=== PATIENT | female | born 1955 | race Caucasian/White ===

== ENCOUNTER 2024-12-20 17:13 | Emergency (ER) | payer MEDICARE ==
[~2024-12-20] VITALS: Ht 165.1 cm; Wt 72.5 kg
[2024-12-20 17:43] VITALS: BP 157/84
[2024-12-20 17:45] VITALS: BP 162/92
[2024-12-20] MEDS ORDERED: IBUPROFEN 200 MG/TAB PO ONE (17:45)
[2024-12-20 18:00] VITALS: BP 143/78
[2024-12-20 18:15] VITALS: BP 141/82
[2024-12-20 18:30] VITALS: BP 129/80
[2024-12-20 18:39] VITALS: BP 129/80
== END 2024-12-20 18:52 | disposition home or self-care (01) ==
LOC: ED 17:13
DX: M79.672 Pain in left foot (principal)